=== PATIENT | male | born 1965 | race Caucasian/White ===

== ENCOUNTER → 2023-09-17 | Outpatient (CLI) | payer OTHER | END | disposition home or self-care (01) | LOC: SHCH 14:39 | PROVIDERS: ATTEND Internal Medicine Cardiovascular Disease | DX: I35.0 Nonrheumatic aortic (valve) stenosis (principal) | CPT/HCPCS: 93306 ==

== ENCOUNTER → 2023-09-22 | Outpatient (CLI) | payer OTHER | END | disposition home or self-care (01) | LOC: OIH 14:25 | PROVIDERS: ATTEND Internal Medicine Cardiovascular Disease | DX: Z13.6 Encounter for screening for cardiovascular disorders (principal) | CPT/HCPCS: 75571 ==

== ENCOUNTER → 2023-12-11 | Outpatient (CLI) | payer OTHER | END | disposition home or self-care (01) | LOC: SHCH 08:34 | PROVIDERS: ATTEND Internal Medicine Cardiovascular Disease | DX: I70.201 Unspecified atherosclerosis of native arteries of extremities, right leg (principal) | CPT/HCPCS: 93925 ==

== ENCOUNTER → 2024-09-12 | Outpatient (CLI) | payer OTHER | END | disposition home or self-care (01) | LOC: SHCH 15:27 | PROVIDERS: ATTEND Internal Medicine Cardiovascular Disease | DX: I35.0 Nonrheumatic aortic (valve) stenosis (principal) | CPT/HCPCS: 93306 ==

== ENCOUNTER 2024-10-20 08:28 | Day surgery (SDC) | payer OTHER ==
[2024-10-18 13:52] LABS: BASOPHILS # (AUTO) 0.04 K/uL (0.00-0.20); BASOPHILS % (AUTO) 0.7 % (0.0-5.0); EOSINOPHILS # (AUTO) 0.08 K/uL (0.00-0.70); EOSINOPHILS % (AUTO) 1.4 % (0.0-8.0); HEMATOCRIT 47.1 % (42-54); IMMATURE GRANULOCYTE ABSOLUTE 0.01 K/uL (0-1); LYMPHOCYTES # (AUTO) 1.6 K/uL (1.0-4.8); LYMPHOCYTES % (AUTO) 28.6 % (21.0-51.0); MEAN CORPUSCULAR HGB CONC 33.5 g/dL (32.0-36.0); MEAN CORPUSCULAR VOLUME 95.3 fL (79-99); MONOCYTES # (AUTO) 0.7 K/uL (0.1-1.0); MONOCYTES % (AUTO) 13.2 % (3.0-13.0); NEUTROPHILS # (AUTO) 3.1 K/uL (1.8-7.7); NEUTROPHILS % (AUTO) 55.9 % (40.0-77.0); PLATELET COUNT (AUTO) 298 K/uL (130-400); RED BLOOD CELL COUNT(AUTO) 4.94 MIL/uL (4.50-6.20); RED CELL DISTRIBUTION WIDTH 12.2 % (11.0-15.5); WHITE BLOOD COUNT (AUTO) 5.5 K/uL (4.8-10.8)
[2024-10-18 13:56] VITALS: BP 149/86; PULSE 68; RESP 16; TEMP 97.3
[2024-10-18 14:26] LABS: CREATININE 0.7 mg/dL (0.5-1.3); POTASSIUM 4.6 mmol/L (3.5-5.1)
[~2024-10-20] VITALS: Ht 182.9 cm; Wt 78.1 kg
[2024-10-20] VITALS (18 sets, daily range): BP systolic 119–143; BP diastolic 67–84; PULSE 72–88; RESP 15–18; TEMP 97.1–98
[~2024-10-20 08:28] MED LIST: ASCO100031 PO; ASPI-1197 PO; CHOL400T33 PO; CLOP-31 PO; MULT-1259 PO; ROSU10TA72 PO; VITA-427 PO; WHEA98PO PO; [UNRECOGNIZED DRUG - OTHER]
[2024-10-20] MEDS: LACTATED RINGERS 1000ML 1,000 ML IV ONE (10:33)
[2024-10-20] MEDS: ceFAZolin SODIUM 2 GM VIAL ONE (10:33)
[2024-10-20] MEDS ORDERED: FENTanyl CITRate PF 50 MCG/1 ML 2ML VIAL ONE ×2 (14:10→15:03)
[2024-10-20] MEDS ORDERED: SUCCINYLCHOLINE CHLORIDE 20 MG/ML 10 ML VIAL ONE (14:10)
[2024-10-20] MEDS ORDERED: proPOFol 10 MG/ML 20ML VIAL IV ONE ×2 (14:10→15:54)
[2024-10-20] MEDS ORDERED: rocuRONium bROMide 10MG/1ML 5ML VL ONE (14:10)
[2024-10-20] MEDS ORDERED: MIDAZOLAM HCL 1 MG/ML 2ML VIAL ONE (14:10)
[2024-10-20] MEDS ORDERED: hydrALAZine 20MG/ML VIAL ONE (14:34)
[2024-10-20] MEDS ORDERED: ALBUTEROL INHALER 90MCG/INH IH ONE (14:34)
[2024-10-20] MEDS ORDERED: LAbetaLOL 20MG VIAL ONE (14:37)
[2024-10-20] MEDS ORDERED: ePHEDrine SULFate 50 MG/ML AMPULE ONE (14:42)
[2024-10-20] MEDS: ceFAZolin SODIUM 1 GM VIAL ONE (15:05)
[2024-10-20] MEDS: BUPIvacaine/PF 0.25% 30ML VIAL IJ ONE (16:02)
--- NOTE | 2024-10-20 16:21 | OP ---
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 THE PATIENT IS BROUGHT TO THE OPERATING ROOM FOR REPAIR, PROCEDURE UNDERSTOOD, RISKS, BENEFITS AND POSSIBLE COMPLICATIONS AND AGREED SIGNED THE CONSENT FORM] DESCRIPTION OF PROCEDURE: [After adequate general anesthesia was achieved the patient a tourniquet was applied to the proximal thigh of the right leg and then the patient was placed in the prone position in the operative table and after padding was provided we proceeded then to elevate the extremity and the extremity was exsanguinated and the tourniquet inflated to 250 mmHg. Attention was given to the heel area where a prominent attached and was present. A curvilinear incision in the form of a inverted question sign was then made around the insertion of the Achilles tendon and then a flap was elevated medially exposing the Achilles tendon. We proceeded to evaluate the attachment and there was a soft area noted at the insertion site and after this we proceeded then to peel of the Achilles from the healthy area until we entering into the detachment zone. The Achilles was completely detached and then we proceeded to remove all the scar tissue present and then with the use of an oscillating saw we proceeded then to make a flat surface by cutting the bone and then using the Arthrex system we proceeded to drill in a square fashion two proximal and two distal anchor insertion site. This defects with tapped and then the two proximal holes were used to penetrate with two anchors with Arthrex sutures and these were passed through the thickness of the tendon with a cutting needle and then we proceeded to use some of the sutures attached to the anchor to stabilize that the location each anchor had two ends up with a repair suture. Once the tendon was secured proximally we proceeded then to do a double row technique to bring the distal end of the Achilles tendon to the distal attachment site inserting one end of each suture to the distal anchor anchors which were then placed tightened of the Achilles tendon to the bone. The suture ends were cut the and the wound was copiously irrigated after the tourniquet was deflated and bleeding was controlled with the use of the Bovie cautery proceeding then to close the wound with approximation of the subcutaneous tissue with number 2-0 Vicryl inverted stitches and closure of the skin with 3-0 nylon simple stitches. The wound was covered with an occlusive dressing and this was rotated with 4x4s and an Amari bandage the patient has been then placed in a cam walker boot. He was then transferred to his stretcher, was awakened and extubated and taken to recovery room for follow-up by anesthesia. There were no complications in the procedure.] ANTONELLA TOWNSEND MD Oct 20, 2024 16:21
[2024-10-20] MEDS ORDERED: CEPH500B PO (16:25)
[2024-10-20] MEDS ORDERED: HYDR-4060 PO (16:25)
--- NOTE | 2024-10-20 17:45 | NUR ---
PATIENT ARRIVED TO DAY PATIENT VIA STRETCHER BY KENDAL RICHARDSON. PATIENT AAOX3, VITAL SIGNS STABLE, DENIES PAIN AT THIS TIME. S/P RIGHT ACHILLES TENDON REPAIR. FRANCISCO WRAP AND BOOT TO RLE. NO BLEEDING NOTED.
--- NOTE | 2024-10-20 18:15 | NUR ---
PATIENT DISCHARGED FROM FACILITY VIA WHEELCHAIR BY NURSE AND ASSISTED INTO PRIVATE VEHICLE DRIVEN BY SISTER (PATIENT PROVIDED WITH CRUTCHES WELL)
== END 2024-10-20 18:15 | disposition home or self-care (01) ==
LOC: DAH 08:28
PROVIDERS: ATTEND Orthopaedic Surgery
DX: S86.011A Strain of right Achilles tendon, initial encounter (principal); G89.29 Other chronic pain; Z79.899 Other long term (current) drug therapy; Z79.01 Long term (current) use of anticoagulants; Y93.A2 Activity, calisthenics; Y92.89 Other specified places as the place of occurrence of the external cause; Y99.8 Other external cause status
CPT/HCPCS: 80048; 85025; 36415; 27650; 82948; C1713; J7030; J7120; J3010 ×2; J0690 ×2; J0330; J0665; J3490 ×3; J0360; J2250; J2704 ×2; A6206; A6223; A4649; A4930 ×2; A5120; A4215; A4223; A4222; A4221

== ENCOUNTER → 2025-06-05 | Outpatient (CLI) | payer OTHER ==
[~2025-06-05] MED LIST changes: +CEPH500B PO; +HYDR-4060 PO
--- NOTE | 2025-06-06 09:07 | HMCIMG ---
EXAM: CT Cardiac calcium scoring. CLINICAL HISTORY: Screening. TECHNIQUE: Thin collimated axial CT cardiac images were obtained. A CT scan is done according to ALARA (As Low As Reasonably Achievable). CONTRAST: None. COMPARISON: CT Cardiac calcium scoring. 09/22/2023. FINDINGS: Calcium Score: VESSEL Number of lesions Volume mm3 Equi. Mass/mg Calcium score LM 0 0 - 0 LAD 0 0 - 0 LCX 0 0 - 0 RCA 0 0 - 0 Total 0 0 - 0 IMPRESSION: The total calcium score is 0. /[place]
== END | disposition home or self-care (01) ==
LOC: RAH 13:56
PROVIDERS: ATTEND Internal Medicine Cardiovascular Disease
DX: Z13.6 Encounter for screening for cardiovascular disorders (principal)
CPT/HCPCS: 75571